=== PATIENT | male | born 1955 | race Caucasian/White ===

== ENCOUNTER 2017-10-08 13:11 | Emergency (ER) | payer BC ==
[~2017-10-08] VITALS: Ht 185.4 cm; Wt 133.4 kg
[~2017-10-08 13:11] MED LIST: ASPIRIN81 M2 PO; AZITHROMYCIN250 MG1 PO; CELEBREX200 MG PO; COUMADIN7.5 MG PO; FERROUS SULFAT325 MG PO; GUAIFENESIN AC473 ML PO; IBUPROFEN800 MG PO; MUCINEX1200 MG PO; MULTIVITAMIN1 EAC1 PO; NORCO 5/3251 TABLET PO; OMEPRAZOLE20 MG PO; PROVENTIL,2.5 MG/3 M IH; SENOKOT,SENN1 TABLET PO; VICODIN 5-5001 EACH NG; ZANTAC75 MG PO
[2017-10-08 14:00] LABS: HEMATOCRIT 42.3 % (38.0-50.0); MCHC 33.1 G/DL (30.0-36.0); MCV 93.6 FL (86-99); PLATELET COUNT 210 K/uL (156-360); RBC DIS.WIDTH-CV 13.3 % (11.8-14.6); RBC DIS.WIDTH-SD 45.7 % (39-53); RED BLOOD COUNT 4.52 M/uL (4.00-5.50); WHITE BLOOD COUNT 8.6 K/uL (4.1-10.2)
[2017-10-08 14:08] LABS: CHLORIDE 103 mEq/L (99-109); POTASSIUM 4.4 mEq/L (3.7-5.4); SODIUM 136 mEq/L (136-147)
[2017-10-08 14:10] LABS: GLUCOSE 101 mg/dL (70-99)
[2017-10-08 14:14] LABS: CREATININE 0.8 mg/dL (0.6-1.3); GFR ESTIMATE (CALCULATED) > 59 mL/min/ (58.99-99999); UREA NITROGEN (BUN) 14 mg/dL (9-23)
[2017-10-08 14:20] LABS: TROP-I INTERPRETATION NEGATIVE; TROPONIN-I < 0.01 ng/mL (0.0-0.30)
[2017-10-08] MEDS ORDERED: PREDNISONE20 MG PO (17:41)
[2017-10-08] MEDS ORDERED: PROVENTIL HFA6.7 GM IH (17:41)
[2017-10-08] MEDS ORDERED: TESSALON200 MG PO (17:41)
[2017-10-08 18:30] VITALS: BP 138/76
== END 2017-10-08 18:44 | disposition home or self-care (01) ==
LOC: EME 13:11
DX: J44.1 Chronic obstructive pulmonary disease with (acute) exacerbation (principal); R09.1 Pleurisy; F17.210 Nicotine dependence, cigarettes, uncomplicated; Z71.6 Tobacco abuse counseling; E78.1 Pure hyperglyceridemia; K21.9 Gastro-esophageal reflux disease without esophagitis; N40.0 Benign prostatic hyperplasia without lower urinary tract symptoms; M10.9 Gout, unspecified; Z96.642 Presence of left artificial hip joint; Z79.82 Long term (current) use of aspirin
CPT/HCPCS: 71046; 71275; 80048; 84484; 85027; 93005; 99281; 99285; J7030; J7512